=== PATIENT | female | born 1995 | race American Indian/Alaskan Native ===

== ENCOUNTER 2019-08-16 08:53 | Emergency (ER) | payer BC ==
[2019-08-16 09:24] LABS: Bilirubin,Urine NEG (Negative); Blood,Urine NEG (Negative); Color,Urine Yellow (Yellow); Mucus,Urine 1+ /HPF; Protein,Urine <15 mg/dL mg/dL (Negative); Urobilinogen,Urine < 2.0 mg/dL (<2.0)
[2019-08-16 09:34] LABS: HCG Qualitative,Urine Negative (Negative)
[2019-08-16] MEDS ORDERED: IBUPROFEN 600 MG TAB PO ONE (10:02)
[2019-08-16] MEDS ORDERED: ONDANSETRON 4 MG ODT TAB PO ONE (10:02)
--- NOTE | 2019-08-16 10:04 | Emergency Department Report ---
ED Abdominal Pain HPI - General Chief Complaint: Abdominal Pain Stated Complaint: ABD PAIN Time Seen by Provider: 08/16/19 09:50 Source: patient Mode of arrival: Ambulatory Limitations: No Limitations - History of Present Illness Initial Comments: 24-year-old -Montene[place] female presents to the emergency room complaining of abdominal pain. Patient complains of nausea but no vomiting. Patient was seen here 1 week ago on 09 August 2019 for the same complaint. Patient reports that she was seen by surgery for gallbladder polyp and they recommend follow-up in 6 months to see if the polyp has changed. Patient reports she has been taking her Bentyl Pepcid Toradol and Zofran but Wednesday medication stopped working. Patient does report she smokes weed on a daily basis. Patient last took her Toradol last night. She does not have a primary care provider but is scheduled for an appointment at [facility] August 28, 2019. Patient reports her last menstrual period was 07/30/2019. MD Complaint: abdominal pain Onset/Timin -: days(s) Location: RUQ Quality: cramping Consistency: intermittent Associated Symptoms: nausea. denies: vomiting, diarrhea, fever, chills, constipation, dysuria, hematemesis, hematochezia - Related Data LMP Date: 07/30/19 Previous Rx's Medication Instructions Recorded Last Taken Type Dicyclomine [Bentyl] 20 mg PO Q6H PRN #30 tablet 08/09/19 Unknown Rx Famotidine [Pepcid] 20 mg PO Q12H #30 tablet 08/09/19 Unknown Rx Ketorolac [Toradol] 10 mg PO Q8H PRN #20 tablet 08/09/19 Unknown Rx Ondansetron [Zofran Odt] 4 mg PO Q6HR PRN #20 tab.rapdis 08/09/19 Unknown Rx Allergies Allergy/AdvReac Type Severity Reaction Status Date / Time No Known Allergies Allergy Verified 08/09/19 02:35 ED Review of Systems ROS: Stated complaint: ABD PAIN Other details as noted in HPI Comment: All other systems reviewed and negative ED Past Medical Hx - Past Medical History Previous Medical History?: No - Surgical History Past Surgical History?: Yes Additional Surgical History: tonsil - Social History Smoking Status: Never Smoker Substance Use Type: None - Medications Home Medications: Home Medications Medication Instructions Recorded Confirmed Last Taken Type Dicyclomine [Bentyl] 20 mg PO Q6H PRN #30 tablet 08/09/19 Unknown Rx Famotidine [Pepcid] 20 mg PO Q12H #30 tablet 08/09/19 Unknown Rx Ketorolac [Toradol] 10 mg PO Q8H PRN #20 tablet 08/09/19 Unknown Rx Ondansetron [Zofran Odt] 4 mg PO Q6HR PRN #20 tab.rapdis 08/09/19 Unknown Rx ED Physical Exam - General Limitations: No Limitations General appearance: alert, in no apparent distress - Head Head exam: Present: atraumatic, normocephalic ED Course Vital Signs 08/16/19 08:56 Temperature 98.0 F Pulse Rate 77 Respiratory 20 Rate Blood Pressure 98/56 O2 Sat by Pulse 100 Oximetry ED Medical Decision Making - Medical Decision Making 24-year-old -[place] female presents to the emergency room complaining of abdominal pain. Patient complains of nausea but no vomiting. Patient was seen here 1 week ago on 09 August 2019 for the same complaint. Patient reports that she was seen by surgery for gallbladder polyp and they recommend follow-up in 6 months to see if the polyp has changed. Patient reports she has been taking her Bentyl Pepcid Toradol and Zofran but Wednesday medication stopped working. Patient does report she smokes weed on a daily basis. Patient last took her Toradol last night. She does not have a primary care provider but is scheduled for an appointment at [facility] August 28, 2019. Patient reports her last menstrual period was 07/30/2019. Patient was ordered ibuprofen and Zofran and reported to the nurse that she did not want to take that she would like to be seen by . Dr. Tellez proceeded to go in to patient's room and she left AMA. Critical care attestation.: If time is entered above; I have spent that time in minutes in the direct care of this critically ill patient, excluding procedure time. ED Disposition Clinical Impression: Nausea and vomiting in adult Disposition: DC-07 LEFT AGAINST MED ADVICE Is pt being admited?: No Does the pt Need Aspirin: No Condition: Stable Instructions: Abdominal Pain (ED) Referrals: PRIMARY CARE,MD [Primary Care Provider] - 3-5 Days Forms: AMA Form
[2019-08-16 13:54] VITALS: BP 98/56
== END 2019-08-16 11:03 | disposition left against medical advice (07) ==
LOC: ED 08:53
DX: R11.2 Nausea with vomiting, unspecified (principal); R10.11 Right upper quadrant pain; Z98.890 Other specified postprocedural states; Z79.899 Other long term (current) drug therapy
CPT/HCPCS: 81001; 81025; 99283; Q0162

== ENCOUNTER 2020-04-22 02:59 | Emergency (ER) | payer BC ==
--- NOTE | 2020-04-22 03:46 | Emergency Department Report ---
ED General Adult HPI - General Chief complaint: Dental/Oral Stated complaint: SWOLLEN FACE Time Seen by Provider: 04/22/20 03:24 Source: patient Mode of arrival: Ambulatory Limitations: No Limitations - History of Present Illness Initial comments: 24-year-old -[place]oz[place] female patient presents with complaints of left upper dental pain and facial swelling x3 days. She denies any fever/chills/sweats, difficulty opening her jaw, dysphagia, or history of dental abscesses. Patient rates her current pain is 8/10 in severity and states Tylenol is not helping. -: Sudden - Related Data Previous Rx's Medication Instructions Recorded Last Taken Type Dicyclomine [Bentyl] 20 mg PO Q6H PRN #30 tablet 08/09/19 Unknown Rx Famotidine [Pepcid] 20 mg PO Q12H #30 tablet 08/09/19 Unknown Rx Ketorolac [Toradol] 10 mg PO Q8H PRN #20 tablet 08/09/19 Unknown Rx Ondansetron [Zofran Odt] 4 mg PO Q6HR PRN #20 tab.rapdis 08/09/19 Unknown Rx Acetaminophen/Codeine [Tylenol 1 tab PO Q6H PRN #10 tab 04/22/20 Unknown Rx /Codeine # 3 tab] Clindamycin [Clindamycin CAP] 300 mg PO Q6H 10 Days #40 capsule 04/22/20 Unknown Rx Ibuprofen [Motrin 800 MG tab] 800 mg PO Q8HR PRN #21 tablet 04/22/20 Unknown Rx Allergies Allergy/AdvReac Type Severity Reaction Status Date / Time No Known Allergies Allergy Verified 08/09/19 02:35 ED Review of Systems ROS: Stated complaint: SWOLLEN FACE Other details as noted in HPI Constitutional: denies: chills, fever, malaise ENT: dental pain. denies: throat pain Respiratory: denies: shortness of breath Cardiovascular: denies: chest pain Hematological/Lymphatic: denies: swollen glands ED Past Medical Hx - Past Medical History Previous Medical History?: No - Surgical History Additional Surgical History: tonsil - Social History Smoking Status: Former Smoker Substance Use Type: Alcohol, Marijuana - Medications Home Medications: Home Medications Medication Instructions Recorded Confirmed Last Taken Type Dicyclomine [Bentyl] 20 mg PO Q6H PRN #30 tablet 08/09/19 Unknown Rx Famotidine [Pepcid] 20 mg PO Q12H #30 tablet 08/09/19 Unknown Rx Ketorolac [Toradol] 10 mg PO Q8H PRN #20 tablet 08/09/19 Unknown Rx Ondansetron [Zofran Odt] 4 mg PO Q6HR PRN #20 tab.rapdis 08/09/19 Unknown Rx Acetaminophen/Codeine [Tylenol 1 tab PO Q6H PRN #10 tab 04/22/20 Unknown Rx /Codeine # 3 tab] Clindamycin [Clindamycin CAP] 300 mg PO Q6H 10 Days #40 capsule 04/22/20 Unknown Rx Ibuprofen [Motrin 800 MG tab] 800 mg PO Q8HR PRN #21 tablet 04/22/20 Unknown Rx ED Physical Exam - General Limitations: No Limitations General appearance: alert, in no apparent distress - Head Head exam: Present: atraumatic, normocephalic - Eye Eye exam: Present: normal appearance. Absent: scleral icterus - ENT ENT exam: Present: mucous membranes moist - Expanded ENT Exam Expanded Mouth exam: Absent: drooling, trismus, muffled voice 1 - Dental Tenderness (Dental abscess noted with mild overlying facial swelling noted; no cellulitic changes noted to face) Throat exam: Positive: normal inspection - Neck Neck exam: Absent: lymphadenopathy - I & D Cheek Type of Procedure: Simple Site: Left upper dental Blade Size: 11 Progress: 0.5 cc of 0.5% Marcaine without epi used to anesthetize area. 11 blade used to incise abscess. Moderate purulent drainage obtained. Patient tolerated procedure well without any immediate complications. Minimal bleeding occurred. ED Medical Decision Making - Medical Decision Making 24-year-old -[place] female patient presents with complaints of left upper dental pain and facial swelling x3 days. She denies any fever/chills/sweats, difficulty opening her jaw, dysphagia, or history of dental abscesses. Patient rates her current pain is 8/10 in severity and states Tylenol is not helping. Dental abscess noted on exam. Incision and drainage performed a moderate purulent drainage obtained. Discussed importance of warm compresses and follow- up with dental specialist within 2 days. Also discussed signs and symptoms that should prompt immediate return to the emergency department in detail with patient who verbalizes understanding. Prescription given for clindamycin, ibuprofen, and Tylenol 3. Patient is well-appearing, her vitals are normal, she is stable for discharge home. Critical care attestation.: If time is entered above; I have spent that time in minutes in the direct care of this critically ill patient, excluding procedure time. ED Disposition Clinical Impression: Dental abscess Disposition: DC- TO HOME OR SELFCARE Is pt being admited?: No Condition: Stable Instructions: Dental Abscess Additional Instructions: Please follow up with your dental specialist within 2 days. Prescriptions: Clindamycin [Clindamycin CAP] 300 mg PO Q6H 10 Days #40 capsule Ibuprofen [Motrin 800 MG tab] 800 mg PO Q8HR PRN #21 tablet PRN Reason: pain Acetaminophen/Codeine [Tylenol /Codeine # 3 tab] 1 tab PO Q6H PRN #10 tab PRN Reason: Pain , Severe (7-10)
[2020-04-22] MEDS ORDERED: ONDANSETRON 4 MG ODT TAB PO ONE (03:49)
[2020-04-22] MEDS ORDERED: oxyCODONE /ACETAMINOPHEN 5-325MG TAB PO ONE (03:49)
[2020-04-22 04:05] VITALS: BP 104/65
== END 2020-04-22 04:10 | disposition home or self-care (01) ==
LOC: ED 02:59
DX: K04.7 Periapical abscess without sinus (principal); F12.10 Cannabis abuse, uncomplicated; Z87.891 Personal history of nicotine dependence; Z98.890 Other specified postprocedural states; Z79.1 Long term (current) use of non-steroidal anti-inflammatories (NSAID); Z79.2 Long term (current) use of antibiotics; Z79.899 Other long term (current) drug therapy
CPT/HCPCS: Q0162

== ENCOUNTER 2020-07-09 10:55 | Emergency (ER) | payer BC, OTHER ==
[2020-07-09 11:21] VITALS: BP 97/56
[2020-07-09 12:16] LABS: Basophils % (Auto) 0.2 % (0.0-1.8); Eosinophils % (Auto) 0.2 % (0.0-4.3); Hematocrit 38.2 % (30.3-42.9); Hemoglobin 13.6 gm/dl (10.1-14.3); Lymphocytes % (Auto) 23.4 % (13.4-35.0); Mean Corpuscular HGB Conc 36 % (30-34); Mean Corpuscular Volume 91 fl (79-97); Monocytes # (Auto) 0.6 K/mm3 (0.0-0.8); Monocytes % (Auto) 6.8 % (0.0-7.3); Platelet Count 237 K/mm3 (140-440); Red Blood Count 4.19 M/mm3 (3.65-5.03); Red Cell Distribution Width 12.7 % (13.2-15.2)
--- NOTE | 2020-07-09 13:37 | Emergency Department Report ---
ED General Adult HPI - General Chief complaint: Syncope Stated complaint: I got lightheaded PUI?: No Time Seen by Provider: 07/09/20 13:37 Source: patient Mode of arrival: Ambulatory Limitations: No Limitations - History of Present Illness Initial comments: The patient was evaluated in the emergency department for symptoms described in the history of present illness. He/she was evaluated in the context of the global COVID-19 pandemic, which necessitated consideration that the patient might be at risk for infection with the virus that causes COVID-19. Institutional protocols and algorithms that pertain to the evaluation of patients at risk for COVID-19 are in a state of rapid change based on information released by regulatory bodies including the CDC and federal and state organizations. These policies and algorithms were followed during the patient's care in the emergency department. Please note that these policies, procedures and recommendations changed on a rapid basis. This is a pleasant 24-year-old female. She is not known to myself previously. She is 1, para 0, at approximately 13 weeks gestation. The patient follows with [facility]. The patient states she does not currently consume tobacco, alcohol, or cannabis, since becoming . The patient states she has no chronic medical conditions. The patient presents to the ER today with a complaint of painless lightheadedness. This has been going on for the past week. The patient states that a few days ago, she felt lightheaded, and thought she might pass out, but she did not pass out. This was not accompanied by any physical pain. A few days later, the patient had similar symptoms. She was walking, felt lightheaded, felt like she might pass out, but did not pass out. She had a similar event happened yesterday. The patient does report an airplane trip to [place] about a month ago. It was about 5 hours. The patient currently denies headache, neck pain, chest pain, abdominal pain, shortness of breath, urinary symptoms, hematemesis, bright red blood per rectum, Covid symptomatology. The patient has had intermittent nausea and vomiting during this , but she does not think it is "severe." She thinks that in the past week, she has vomited 5 times. She called her CERTIFIED MEDICATION AIDE, who instructed her to present to the emergency room. The patient feels like she is "pretty okay" at the moment, denies acute symptomatology at this moment. No significant family history that she is aware of. -: Sudden Consistency: intermittent Improves with: none Worsens with: none Associated Symptoms: denies other symptoms - Related Data Previous Rx's Medication Instructions Recorded Last Taken Type Dicyclomine [Bentyl] 20 mg PO Q6H PRN #30 tablet 08/09/19 Unknown Rx Famotidine [Pepcid] 20 mg PO Q12H #30 tablet 08/09/19 Unknown Rx Ketorolac [Toradol] 10 mg PO Q8H PRN #20 tablet 08/09/19 Unknown Rx Ondansetron [Zofran Odt] 4 mg PO Q6HR PRN #20 tab.rapdis 08/09/19 Unknown Rx Acetaminophen/Codeine [Tylenol 1 tab PO Q6H PRN #10 tab 04/22/20 Unknown Rx /Codeine # 3 tab] Clindamycin [Clindamycin CAP] 300 mg PO Q6H 10 Days #40 capsule 04/22/20 Unknown Rx Ibuprofen [Motrin 800 MG tab] 800 mg PO Q8HR PRN #21 tablet 04/22/20 Unknown Rx Allergies Allergy/AdvReac Type Severity Reaction Status Date / Time No Known Allergies Allergy Verified 07/09/20 11:19 ED Review of Systems ROS: Stated complaint: 13 WEEKS , DIZZY, PASSED OUT 2 DAY AGO Other details as noted in HPI Constitutional: other (Denies loss of taste and smell). denies: fever, malaise, weakness Eyes: denies: eye discharge, vision change ENT: denies: epistaxis, congestion Respiratory: denies: cough Cardiovascular: other (Lightheadedness, near syncope). denies: chest pain, palpitations, orthopnea, edema Gastrointestinal: denies: abdominal pain, nausea, vomiting, hematemesis, melena, hematochezia Genitourinary: denies: dysuria Musculoskeletal: denies: back pain Neurological: denies: headache Hematological/Lymphatic: denies: easy bleeding ED Past Medical Hx - Past Medical History Previous Medical History?: No - Surgical History Additional Surgical History: tonsil - Social History Smoking Status: Never Smoker Substance Use Type: None - Medications Home Medications: Home Medications Medication Instructions Recorded Confirmed Last Taken Type Dicyclomine [Bentyl] 20 mg PO Q6H PRN #30 tablet 08/09/19 Unknown Rx Famotidine [Pepcid] 20 mg PO Q12H #30 tablet 08/09/19 Unknown Rx Ketorolac [Toradol] 10 mg PO Q8H PRN #20 tablet 08/09/19 Unknown Rx Ondansetron [Zofran Odt] 4 mg PO Q6HR PRN #20 tab.rapdis 08/09/19 Unknown Rx Acetaminophen/Codeine [Tylenol 1 tab PO Q6H PRN #10 tab 04/22/20 Unknown Rx /Codeine # 3 tab] Clindamycin [Clindamycin CAP] 300 mg PO Q6H 10 Days #40 capsule 04/22/20 Unknown Rx Ibuprofen [Motrin 800 MG tab] 800 mg PO Q8HR PRN #21 tablet 04/22/20 Unknown Rx ED Physical Exam - General Limitations: No Limitations General appearance: alert, in no apparent distress - Head Head exam: Present: atraumatic, normocephalic - Eye Eye exam: Present: normal appearance, PERRL, EOMI, other (Visual acuity intact to finger counting, color perception, reading at a close distance). Absent: nystagmus - ENT ENT exam: Present: normal exam, normal orophraynx, mucous membranes moist, normal external ear exam - Neck Neck exam: Present: normal inspection, full ROM. Absent: tenderness, meningismus - Respiratory Respiratory exam: Present: normal lung sounds bilaterally. Absent: respiratory distress, wheezes, rales, rhonchi, stridor, decreased breath sounds - Cardiovascular Cardiovascular Exam: Present: regular rate, normal rhythm. Absent: bradycardia, tachycardia, irregular rhythm, systolic murmur, diastolic murmur, rubs, gallop - GI/Abdominal GI/Abdominal exam: Present: soft, normal bowel sounds. Absent: distended, tenderness, guarding, rebound, rigid, pulsatile mass - Extremities Exam Extremities exam: Present: normal inspection, full ROM, other (2+ pulses noted in the bilateral upper and lower extremities. There is no palpable cord. negative Homans sign. Muscular compartments are soft. The pelvis is stable.). Absent: pedal edema, calf tenderness - Back Exam Back exam: Present: normal inspection, full ROM. Absent: tenderness, CVA tenderness (R), CVA tenderness (L), paraspinal tenderness, vertebral tenderness - Neurological Exam Neurological exam: Present: alert, oriented X3, normal gait, other (There is no facial droop. The tongue is midline. Extraocular movements are intact bilaterally. There is 5 out of 5 strength in bilateral upper and lower extremities. Sensation is intact to light touch bilateral upper and lower extremities. There is no past-pointing. There is no pronator drift.). Absent: motor sensory deficit - Psychiatric Psychiatric exam: Present: normal affect, normal mood - Skin Skin exam: Present: warm, dry, intact, normal color. Absent: rash ED Course Vital Signs 07/09/20 07/09/20 11:17 14:38 Temperature 98.6 F Pulse Rate 61 Respiratory 16 14 Rate Blood Pressure 97/56 O2 Sat by Pulse 100 100 Oximetry - Reevaluation(s) Reevaluation #1: 07/09/20 15:24 Differential diagnosis, including but not limited to: Orthostasis, vagal event, pulmonary embolism, structural cardiac disease, dehydration, ectopic Assessment and plan: 24-year-old female, who is afebrile, with reassuring vital signs, who is not currently tachycardic, tachypneic or hypoxic, who does have pulmonary embolism risk factors in her , and recent airplane trip to [place]. However, I think it is very unlikely that she has a pulmonary embolism, given her physical examination. I think dehydration orthostasis are more likely. She has a GCS of 15, walks with a steady gait, denies blunt head injury/closed head injury, and has a normal neurologic examination. She has an NIH score of 0. EKG fairly unremarkable, age appropriate. Start patient on IV fluids, antiemetic medication, obtain pelvic ultrasound to exclude ectopic , appropriate laboratory studies, urinalysis, reassess after initial data points. We have discussed this plan of care with the patient, who verbalized understanding, and who is amenable to this plan of care. Reevaluation #2: 07/09/20 16:32 D-dimer negative. Troponin negative. Ultrasound confirms intrauterine . Orthostatic vital signs borderline ER positive, heart rate increased 19 bpm, laying down to standing. Patient feels markedly improved. She has been observed in this ER for hours without clinical decompensation, loss of consciousness. She is currently playing on a cell phone, and in no acute distress. Low risk for major adverse cardiac event as per heart score. Low risk for adverse event as per [place] syncope rule. Have discussed patient's findings with her. She has articulated understanding. She will follow up with her outpatient CERTIFIED MEDICATION AIDE physician. Return precautions are reviewed. 07/09/20 16:33 Patient endorses that she has antiemetic medication at home, does not require anything else. ED Medical Decision Making - Lab Data Result diagrams: 07/09/20 11:50 07/09/20 11:50 Vital Signs 07/09/20 07/09/20 11:17 14:38 Temperature 98.6 F Pulse Rate 61 Respiratory 16 14 Rate Blood Pressure 97/56 O2 Sat by Pulse 100 100 Oximetry Lab Results 07/09/20 Range/Units 11:50 WBC 8.5 (4.5-11.0) K/mm3 RBC 4.19 (3.65-5.03) M/mm3 Hgb 13.6 (10.1-14.3) gm/dl Hct 38.2 (30.3-42.9) % MCV 91 (79-97) fl MCH 33 H (28-32) pg MCHC 36 H (30-34) % RDW 12.7 L (13.2-15.2) % Plt Count 237 (140-440) K/mm3 Lymph % (Auto) 23.4 (13.4-35.0) % [place] % (Auto) 6.8 (0.0-7.3) % Eos % (Auto) 0.2 (0.0-4.3) % Baso % (Auto) 0.2 (0.0-1.8) % Lymph # (Auto) 2.0 (1.2-5.4) K/mm3 [place] # (Auto) 0.6 (0.0-0.8) K/mm3 Eos # (Auto) 0.0 (0.0-0.4) K/mm3 Baso # (Auto) 0.0 (0.0-0.1) K/mm3 Seg Neutrophils % 69.4 (40.0-70.0) % Seg Neutrophils # 5.9 (1.8-7.7) K/mm3 Vital Signs - 24 hr 07/09/20 07/09/20 11:17 14:38 Temperature 98.6 F Pulse Rate 61 Respiratory 16 14 Rate Blood Pressure 97/56 O2 Sat by Pulse 100 100 Oximetry - EKG Data -: EKG Interpreted by De EKG shows normal: sinus rhythm Rate: normal - EKG Data When compared to previous EKG there are: previous EKG unavailable 07/09/20 15:08 EKG interpreted at 11: 40 Sinus rhythm, 71 bpm. Normal axis, QTC prolonged, 497 ms. T wave abnormality V2, juvenile T wave inversion. This is an abnormal EKG. This is not a STEMI. There is no prior for comparison. - Radiology Data Radiology results: pending, report reviewed, image reviewed [address] [address] Ultrasound Report Signed Patient: COURT POP MR#: [id number] 277 : 1995 Acct:[id number] Age/Sex: 24 / F ADM Date: 07/09/20 Loc: ED Attending Dr: Ordering Physician: LAURIE BAKER MD Date of Service: 07/09/20 Procedure(s): US OB <= 14 weeks fetus Accession Number(s): [id number] cc: LAURIE BAKER MD OB Ultrasound HISTORY: near syncope. TECHNIQUE: Grayscale and color imaging performed. COMPARISON: None FINDINGS: Uterus measures 11.1 x 11.0 x 10.2 cm with an intrauterine gestation demonstrating a cephalic presentation. age by ultrasound is 13 weeks and 3 days with delivery date of 01/11/2021. Heart rate is 154 bpm. Amniotic fluid volume is grossly within normal limits. The ovaries are normal in size with probable functional cyst on the right measuring 2.1 cm in maximal dimension. No significant pelvic free fluid. IMPRESSION: Single viable intrauterine gestation as above with no acute abnormality. Signer Name: Mo Atkinson MD Signed: 07/09/2020 4:11 PM W orkstation Name: [id number] Transcribed By: JW Dictated By: Mo Atkinson MD Electronically Authenticated By: Mo Atkinson MD Signed Date/Time: 07/09/20 1611 [id number]/ [id number] Critical care attestation.: If time is entered above; I have spent that time in minutes in the direct care of this critically ill patient, excluding procedure time. ED Disposition Clinical Impression: Lightheadedness Qualifiers: Weeks of gestation: 13 weeks Qualified Code(s): Z3A.13 - 13 weeks gestation of Disposition: DC-01 TO HOME OR SELFCARE Is pt being admited?: No Does the pt Need Aspirin: No Condition: Good Instructions: Near-Syncope, [id number], Second Trimester of , [id number] Additional Instructions: Please make certain to drink at least 4 cups of water per day. Please make certain to eat at least 3-6 times per day. Rest, avoid heavy lifting and strenuous physical activities. If possible, please have her friend/family member drive/operate motor vehicles for patient. Please follow-up with your CERTIFIED MEDICATION AIDE doctor within the next week. Please return to the emergency room right away with new pain, worsened pain, migration of pain, projectile vomiting, change in mental status, confusion, inability to tolerate liquid feeds, new, worsened or different symptoms not present on the initial emergency room evaluation. Symptoms likely coming from lightheadedness/dehydration, likely secondary to nausea and vomiting of . Referrals: GARFIELD ORTEGA MD [Primary Care Provider] - 3-5 Days [facility] [Provider Group] - 3-5 Days Forms: Work/School Release Form(ED)
[2020-07-09] MEDS ORDERED: LACTATED RINGERS 1,000 ML IV ONE (14:12)
[2020-07-09] MEDS ORDERED: ONDANSETRON 4 MG/2 ML INJ IV ONE (14:12)
[2020-07-09] MEDS ORDERED: D5W/0.45% NACL 1,000 ML IV SCH (15:00)
[2020-07-09 15:15] LABS: INR 1.07 (0.87-1.13)
[2020-07-09 15:33] LABS: Bilirubin,Urine NEG (Negative); Blood,Urine NEG (Negative); Color,Urine Yellow (Yellow); Mucus,Urine 3+ /HPF; Protein,Urine <15 mg/dL mg/dL (Negative); Urobilinogen,Urine < 2.0 mg/dL (<2.0)
[2020-07-09 15:41] LABS: Alanine Aminotransferase 6 units/L (7-56); Albumin 4.3 g/dL (3.9-5); Blood Urea Nitrogen 6 mg/dL (7-17); Calcium 8.8 mg/dL (8.4-10.2); Hemolysis Index 6
[2020-07-09 15:49] LABS: BUN/Creatinine Ratio 15
--- NOTE | 2020-07-09 16:16 | Ultrasound Report ---
OB Ultrasound HISTORY: near syncope. TECHNIQUE: Grayscale and color imaging performed. COMPARISON: None FINDINGS: Uterus measures 11.1 x 11.0 x 10.2 cm with an intrauterine gestation demonstrating a cephal ic presentation. age by ultrasound is 13 weeks and 3 days with delivery date of 01/11/2021. Hear t rate is 154 bpm. Amniotic fluid volume is grossly within normal limits. The ovaries are normal in size with probable functional cyst on the right measuring 2.1 cm in maximal dimension. No significant pelvic free fluid. IMPRESSION: Single viable intrauterine gestation as above with no acute abnormality. Signer Name: Mo Atkinson MD Signed: 07/09/2020 4:11 PM Workstation Name: [id number]
--- NOTE | 2020-07-11 17:23 | Electrocardiograph Report ---
[facility] Test Date: 2020-07-09 Test Time: 11:32:43 Pat Name: COURT POP Department: Room: Gender: F Library Monitor: OG JOHNSONB: 1995 Requested By: GEOFF BABB Order Number: [id number] Reading MD: Dylan Luz Measurements Intervals [place] Rate: 71 P: 48 NC: 133 QRS: 76 QRSD: 78 T: 51 QT: 440 QTc: 479 Interpretive Statements Sinus arrhythmia No previous ECG available for comparison Electronically Signed On 07-11-2020 17:23:06 EDT by Dylan Luz
== END 2020-07-09 16:49 | disposition home or self-care (01) ==
LOC: ED 10:55
DX: O26.891 Other specified pregnancy related conditions, first trimester (principal); R42 Dizziness and giddiness; Z3A.13 13 weeks gestation of pregnancy; Z79.899 Other long term (current) drug therapy
CPT/HCPCS: 36415; 76801; 80053; 81001; 82550; 83735; 84443; 84484; 84702; 85025; 85379; 85610; 93005; 96360

== ENCOUNTER 2020-10-27 09:02 | Outpatient (CLI) | payer BC, OTHER ==
[2020-10-27 09:51] VITALS: BP 107/68
[2020-10-27] MEDS ORDERED: LACTATED RINGERS 1,000 ML IV SCH (10:15)
[2020-10-27] MEDS ORDERED: LACTATED RINGERS 1,000 ML IV ONE (10:15)
[2020-10-27 10:52] LABS: Bilirubin,Urine NEG (Negative); Blood,Urine NEG (Negative); Color,Urine Yellow (Yellow); Mucus,Urine FEW /HPF; Protein,Urine <15 mg/dL mg/dL (Negative); Urobilinogen,Urine < 2.0 mg/dL (<2.0)
[2020-10-27] MEDS ORDERED: TERBUTALINE 1 MG/1 ML INJ SUB-Q SCH (11:00)
--- NOTE | 2020-10-27 11:57 | Ultrasound Report ---
Limited obstetrical ultrasound INDICATION: , amniotic fluid evaluation COMPARISON: 07/09/2020 FINDINGS: Intrauterine is seen in a cephalic position. Cardiac activity was documented with heart rate of 165 bpm. Placenta is anterior and free of the internal cervical os. Amniotic flu id volume appears qualitatively within normal limits and BINTA is within normal limits at 18.6 cm. Full evaluation was not performed. Dating was not performed. Signer Name: Armand López MD Signed: 10/27/2020 11:53 AM Workstation Name: [id number]
[2020-10-27] MEDS ORDERED: FLUCONAZOLE 200 MG TAB PO SCH (14:00)
[2020-10-27] MEDS ORDERED: FLUCONAZOLE 100 MG TAB PO SCH (14:00)
== END 2020-10-27 13:55 | disposition home or self-care (01) ==
LOC: TRG 09:02 → APU 09:04 → TRG 13:55
PROVIDERS: ATTEND Obstetrics & Gynecology
DX: O62.9 Abnormality of forces of labor, unspecified (principal); Z3A.28 28 weeks gestation of pregnancy
CPT/HCPCS: 36415; 59025; 76815; 81001; 82731; 84112; 87210; 96360; 96372; J3105; J7120

== ENCOUNTER 2020-10-28 13:52 | Outpatient (CLI) | payer BC, OTHER ==
[2020-10-28] MEDS ORDERED: LACTATED RINGERS 1,000 ML IV ONE (15:03)
[2020-10-28 18:32] VITALS: BP 98/54
== END 2020-10-28 15:34 | disposition home or self-care (01) ==
LOC: TRG 13:52 → APU 13:55 → TRG 15:34
DX: Z34.93 Encounter for supervision of normal pregnancy, unspecified, third trimester (principal); Z3A.29 29 weeks gestation of pregnancy
CPT/HCPCS: 59025

== ENCOUNTER 2020-11-27 06:24 | Outpatient (CLI) | payer BC, OTHER ==
[2020-11-27 07:07] VITALS: BP 108/65
[2020-11-27] MEDS ORDERED: LACTATED RINGERS 500 ML IV ONE (07:41)
== END 2020-11-27 07:52 | disposition home or self-care (01) ==
LOC: TRG 06:24 → APU 06:27 → TRG 07:52
DX: Z34.93 Encounter for supervision of normal pregnancy, unspecified, third trimester (principal); Z3A.33 33 weeks gestation of pregnancy
CPT/HCPCS: 59025

== ENCOUNTER 2021-05-22 12:29 | Emergency (ER) | payer BC, OTHER ==
[2021-05-22 13:30] VITALS: BP 133/72
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
== END 2021-05-22 14:46 | disposition home or self-care (01) ==
LOC: ED 12:29
DX: S16.1XXA Strain of muscle, fascia and tendon at neck level, initial encounter (principal); V89.2XXA Person injured in unspecified motor-vehicle accident, traffic, initial encounter; Y93.89 Activity, other specified; Y92.89 Other specified places as the place of occurrence of the external cause; Y99.8 Other external cause status
CPT/HCPCS: 99282